=== PATIENT | female | born 1985 | race Caucasian/White ===

== ENCOUNTER 2023-10-23 12:20 | Emergency (ER) | payer BC, SELFPAY ==
[2023-10-23 12:28] VITALS: BP 139/82; PULSE 82; RESP 18; TEMP 37.2; O2SAT 97
--- NOTE | 2023-10-23 12:46 | US_ITS ---
Patient: YADI BULL Facility:?[facility] RIS Patient ID:?[id number] Site Patient ID:?[id number] Site :?1985 Study:?US-Abdomen RUQ-10/23/2023 2:36:59 PM Ordering Physician:Cindi Final Report: INDICATION: Abdominal pain. COMPARISON: None. FINDINGS: Transabdominal imaging. The visualized pancreas is normal. Aorta is non aneurysmal. IVC is patent. Mildly increased liver echotexture diffusely some focal sparing in the inferior right liver. Smooth liver margin. Somewhat contracted gallbladder. Mild wall thickening up to 4 mm. Shadowing stone at the proximal neck at least 3 cm in diameter. Positive sonographic Negrete`s sign reported. Visualized right kidney unremarkable. IMPRESSION: Acute cholecystitis with moderately prominent cholelithiasis. Fatty liver. Dictated by Jose Saleh MD @ 10/23/2023 3:09:46 PM Signed by:?Jose Saleh MD @10/23/2023 3:09:46 PM (Electronic Signature)
--- NOTE | 2023-10-23 12:52 | ED_ITS ---
HPI - General Adult General Chief complaint: Abdominal Pain Stated complaint: abd pain right side Time Seen by Provider: 10/23/23 12:31 Source: patient Mode of arrival: ambulatory Limitations: no limitations History of Present Illness HPI narrative: 38-year-old female coming in today complaining about right-sided abdominal pain going on for 3 days. Pain is dull and constant. Nothing seems to make it better or worse. Is not associated with eating, burping, bowel movements or urinating. Does not radiate and is located in the right upper quadrant. She denies nausea or vomiting. She denies fevers or chills. She denies any new physical activity. She denies any increased urinary frequency, urgency or dysuria. She denies diarrhea or constipation. She states that she has had a fallopian tube removed in the past, tear duct surgery. She takes Lexapro and Adderall. Related Data Home Medications Medication Instructions Recorded Confirmed dextroamphetamine-amphetamine ER 1 cap PO DAILY 10/23/23 10/23/23 20 mg 24hr capsule,extend release escitalopram oxalate 20 mg tablet 20 mg PO QAM 10/23/23 10/23/23 Allergies Allergy/AdvReac Type Severity Reaction Status Date / Time No Known Drug Allergies Allergy Verified 10/23/23 12:34 Review of Systems Status of ROS: Reports: 10 or more systems reviewed and unremarkable except as noted in History and below Exam Narrative: Exam Narrative: Obese, well-developed patient in no acute distress. Alert and oriented. Answers questions appropriately. Mood and affect are appropriate. Thoughts are goal oriented and rational. No tangential or magical thinking noted. Patient speaks in full sentences without needing to catch her breath. HEENT: Normocephalic atraumatic. Pupils are equally round reactive to light. Extraocular muscles are intact. Conjunctivae are moist without any icterus noted. Moist mucous membranes. Neck is soft. Cardiovascular: Heart is regular rate and rhythm S1 and S2 are present without any murmurs. Lungs: Clear to auscultation bilaterally no wheezes rhonchi or rales are appreciated. Patient takes deep breaths without any discomfort. Abdomen: Soft and nondistended with normal bowel sounds. No guarding or rebound. She does have right upper quadrant tenderness with a positive Negrete sign. She also has right CVA tenderness. There are no overlying skin rashes or changes. Extremities: Bilateral lower extremities are without edema. Skin: Well perfused without any obvious rashes. Const: Vital Signs, click to edit/add: Vital Signs - 24 hr 10/23/23 12:28 Temperature 98.9 F Pulse Rate [Pulse Oximeter] 82 Respiratory Rate 18 Blood Pressure [Ri ght Upper Arm] 139/82 Pulse Oximetry 97 Oxygen Delivery Me thod Room Air Course Course ED Course: Differential diagnosis at this time includes coli lithiasis, nephrolithiasis, musculoskeletal pain. Less likely but certainly still possible pyelonephritis, cholecystitis, constipation. IV was established and labs were drawn. Right upper quadrant ultrasound was ordered. CBC unremarkable. Lactate unremarkable. Chemistries unremarkable. Lactate 0.4. LFTs and lipase normal. CRP 1.2. UA unremarkable. Culture pending. Ultrasound shows a very large gallstone in a contracted gallbladder. Does note cholecystitis, however I do not see any evidence of infection in her lab work nor in her physical presentation. Vital Signs Vital signs: Initial Vital Signs Temperature 98.9 F 10/23/23 12:28 Temperature Source Temporal Artery Scan 10/23/23 12:28 Pulse Rate 82 10/23/23 12:28 Pulse Rhythm Regular 10/23/23 12:28 Respiratory Rate 18 10/23/23 12:28 Blood Pressure 139/82 10/23/23 12:28 Blood Pressure Mean 101 10/23/23 12:28 Blood Pressure Position Sitting 10/23/23 12:28 Pulse Oximetry 97 10/23/23 12:28 Oxygen Delivery Method Room Air 10/23/23 12:28 Vital Signs Temperature 98.9 F 10/23/23 12:28 Pulse Rate 82 10/23/23 12:28 Respiratory Rate 18 10/23/23 12:28 Blood Pressure 139/82 10/23/23 12:28 Pulse Oximetry 97 10/23/23 12:28 Oxygen Delivery Method Room Air 10/23/23 12:28 Temperature 98.9 F 10/23/23 12:28 Pulse Rate 82 10/23/23 12:28 Respiratory Rate 18 10/23/23 12:28 Blood Pressure 139/82 10/23/23 12:28 Pulse Oximetry 97 10/23/23 12:28 Oxygen Delivery Method Room Air 10/23/23 12:28 Medical Decision Making MDM Narrative Medical decision making narrative: 38-year-old female fiber quadrant pain and cholelithiasis. Patient will be sent home with pain medication and we will have her follow up in the [facility] this week. I did call and leave a message with the surgical instrument technician coordinator to reach out to her. Lab Data Lab results reviewed: Yes I reviewed the patient's lab results Labs: Lab Results 10/23/23 10/23/23 Range/Units 13:11 13:35 WBC 6.70 (4.50-11.00) K/uL RBC 4.93 (4.00-5.20) m/uL Hgb 12.8 (12.0-16.0) gm/dL Hct 40.9 (33.0-51.0) % MCV 83 (80-100) fL MCH 26 (26-34) pg MCHC 31 L (32-36) gm/dL RDW Coeff of Greta 14.5 (11.5-15.5) % Plt Count 436 (140-440) K/uL Neut % (Auto) 61.9 (42.0-72.0) % Lymph % (Auto) 29.1 (20-44) % Garvin % (Auto) 6.4 (0.0-11.0) % Eos % (Auto) 2.1 (0.0-7.0) % Baso % (Auto) 0.4 (0.0-3.0) % Neut # (Auto) 4.14 (1.7-7.0) K/uL Lymph # (Auto) 1.95 (0.90-2.90) K/uL Garvin # (Auto) 0.40 (0.00-0.90) K/UL Eos # (Auto) 0.14 (0.00-0.50) K/uL Baso # (Auto) 0.03 (0.00-0.30) K/uL Abs Immat Gran (auto) 0.01 (0.00-0.30) K/uL Imm/Tot Granulo (auto) 0.1 % Sodium 139 (135-149) mmol/L Potassium 3.8 (3.6-5.1) mmol/L Chloride 104 (96-114) mmol/L Carbon Dioxide 29 (20-32) mmol/L Anion Gap 6 L (7-15) mEq/L BUN 10 (5-24) mg/dL Creatinine 0.8 (0.5-1.5) mg/dL Estimated GFR 97 ml/min Glucose 91 (60-115) mg/dL Lactate 0.4 L (0.5-1.9) mmol/L Calcium 8.9 (8.4-10.6) mg/dL Total Bilirubin 0.4 (0.1-1.5) mg/dL Direct Bilirubin 0.0 (0.0-0.5) mg/dL AST 23 (12-35) U/L ALT 21 (4-35) U/L Alkaline Phosphatase 89 (40-150) U/L C-Reactive Protein 1.2 H (0.5-1.0) mg/dL Total Protein 7.7 (6.0-8.3) g/dL Albumin 4.3 (3.3-5.0) g/dL Lipase 40 (23-300) U/L Urine Color Yellow (Yellow) Urine Appearance Slightly Cloudy A (Clear) Urine pH 5.5 (5.0-8.5) Ur Specific [place] 1.025 (1.000-1.030) Urine Protein Negative (Negative) Urine Glucose (UA) Negative (Negative) Urine Ketones Negative (Negative) Urine Blood Negative (Negative) Urine Nitrite Negative (Negative) Urine Bilirubin Negative (Negative) Urine Urobilinogen 0.2 (0.2-1.0) Ur Leukocyte Esterase Negative (Negative) Urine RBC 0-2 (0-2) Urine WBC 2-5 (0-5) Ur Squamous Epith Cells Moderate A (None-Few) Urine Bacteria Few A (None) Urine HCG, Qual Negative (Negative) Imaging Data US - abdomen: Attestation: I have reviewed the pertinent imaging results. Radiologist's impression: Study:?US-Abdomen [facility]-10/23/2023 2:36:59 PM Ordering Physician:Cindi Final Report: INDICATION: Abdominal pain. COMPARISON: None. FINDINGS: Transabdominal imaging. The visualized pancreas is normal. Aorta is non an eurysmal. IVC is patent. Mildly increased liver echotexture diffusely some focal sparing in the inferior right liver. Smooth liver margin. Somewhat contracted gallbladder. Mild wall thickening up to 4 mm. Shadowing stone at the proximal neck at least 3 cm in diameter. Positive sonographic Negrete`s sign reported. Visualized right kidney unremarkable. IMPRESSION: Acute cholecystitis with moderately prominent cholelithiasis. Fatty liver. Discharge Plan Discharge Clinical Impression: Cholelithiasis Patient Disposition: Home, Self-Care Condition: Stable Additional Instructions: Take pain medication as needed. Someone from the surgical team will call you on Tuesday to set up a follow-up appointment. Return to the ER if you develop vomiting, worsening pain or fevers. Eight tablets of [place] sent to [facility]. Prescriptions: No Action dextroamphetamine-amphetamine 20 mg capsule,extended release 24hr 1 cap PO DAILY escitalopram oxalate 20 mg tablet 20 mg PO QAM Follow Up/Referrals: Shannon Mckinney MD [Primary Care Provider] - Stand Alone Forms: [place] Info Instructions
--- OUTSIDE RECORDS SUMMARY | 2023-10-23 12:55 | XMS_ITS | Clinical Summary ---
Author Name Unknown Organization [facility] Address [place], [place] [address] Care Team Providers Care Stone Banker Name Role Phone Dylon Sky MD Unavailable [phone] Henrik Frias DO Primary Care Provider [phone] Allergies Active Allergy Reactions Criticality Noted Date Comments [place] Rash 02/27/2014 Formaldehyde Analogues Headache 06/03/2014 Topical Nickel Rash High 12/08/2007 Unlisted Allergen (Include D etail In Comments) Rash 06/03/2014 Gold Medications Medication Sig Dispensed Refills Start Date End Date Status cyanocobalamin (VITAMIN B-12) 1,000 mcg tablet Take 1 tablet by mouth once daily. 90 tablet 3 05/29/2018 Active Fluocinolone Acetonide (DERMA-SMOOTHE/FS ECZEMA) 0.01 % oil NoIndications:Chronic eczema Apply topically to affected area(s) 2 times daily. 118.28 mL 12/18/2018 Active albuterol HFA 90 mcg/actuation inhalerIndications:Re active airway disease without complication, unspecified asthma severity, unspecified whether persistent Inhale 1-2 Puffs by mouth every 6 hours if needed. 1 Inhaler 09/26/2019 Active dextroamphetamine-amp hetamine (Adderall XR) 20 mg Extended-Release capsuleIndications:At tention deficit hyperactivity disorder (ADHD), other type Take 1 Capsule (20 mg) by mouth once daily. 30 Capsule 09/28/2022 Active dextroamphetamine-amp hetamine (ADDERALL XR) 20 mg Extended-Release capsuleIndications:At tention deficit hyperactivity disorder (ADHD), other type Take 1 Capsule (20 mg) by mouth once daily. 30 Capsule 07/27/2023 Active escitalopram oxalate (LEXAPRO) 20 mg tabletIndications:Anx iety Take 1 Tablet (20 mg) by mouth every morning 90 Tablet 08/29/2023 Active Active Problems Problem Noted Date Diagnosed Date MS (multiple sclerosis) 10/22/2020 Overview: Diagnosis 2018 Dr Gely Pina of migraines 02/14/2017 Attention deficit disorder without mention of hy peractivity 05/28/2014 Generalized anxiety disorder 05/28/2014 Abdominal pain, epigastric 07/20/2013 Overview: EGD 06/2013 normal Lumbar facet arthropathy 09/18/2012 Displacement of lumbar inter vertebral disc without myelopathy 03/22/2012 Other atopic dermatitis and related conditions 0 12/23/2011 Allergic rhinitis, cause unspecified 05/03/2011 Adjustment disorder with mixed anxiety and depre ssed mood 01/02/2008 Encounters Date Type Department Care Team Description 08/29/2023 Refill [facility] [address] [place] [address] Henrik Frias DO Refill Request (Escitalopram Oxalate) from Last 3 Months Immunizations Name Administration Dates Next Due AMB INFLUENZA, IIV4 (AGE=>6M OS) MDV (Flu Clinic Only) 04/03/2018 AMB Influenza, IIV3 (Age >=3 years)(Flu Clinic Only) 04/21/2011 COVID-19 vaccine (Moderna 100mcg/0.5mL) PF, MDV 10/09/2020 DTP 02/05/1987, 6,1985,10/03 DTaP 05/11/1991 Human Papilloma Virus Vaccine 06/25/2011, 011,12/23/2010 02/23/2011 Influenza A (H1N1), Inactivated 05/28/2009 Influenza A (H1N1), Inactiva pete (Age >=3 Years) 05/28/2009 Influenza, IIV3 (Age 6-35 mos) 04/21/2011,2008 Influenza, IIV3 (Age >=3 years) 03/20/2016,05/28,05/09/2008 Influenza, IIV4 05/12/2020,02/28/2019 Influenza, Intradermal Inactivated 05/14/2015 MMR 10/03/1997,10/29/1986 Oral Polio Vaccine 02/05/1987, 6,1985,10/03 Td (Age >=7 Years) 10/03/1997 Tdap 01/03/2017,05/09/2008 Family History Medical History Relation Name Comments Diabetes Father Heart attack Father Hypertension Father Stroke Father Transient ischemic attack Father Hypertension Mother Other Mother 3 miscarriages Cancer-colon Paternal Grandfather Relation Name Status Comments Father Alive Mother Alive Paternal Grandfather Sister 1 Alive Sister 2 Alive Social History Tobacco Use Types Packs/Day Years Used Date Smoking Tobacco: Never Smokeless Tobacco: Never Tobacco Cessation:Counseling Given: Yes Alcohol Use Standard Drinks/Week Comments Yes 0 (1 standard drink = 0.6 oz pur e alcohol) 2 drinks per month PHQ-2 Answer Date Recorded PHQ-2 TOTAL SCORE 1 07/30/2022 Social Connections Answer Date Recorded Frequency of Communication with Friends and Fami ly Not on file 06/20/2021 Financial Resource Strain Answer Date R ecorded Difficulty of Paying Living Expenses Not on file 06/20/2021 Difficulty of Paying Living Expenses Not on file 06/20/2021 Sex and Gender Information Value Date Recorded Sex Assigned at Not on file Gender Identity Not on file Sexual Orientation Not on file Obstetrics History Para Term AB IAB SAB Ectopic Multiple Livin g Live Births 2 1 0 0 0 0 0 0 0 1 Date Outcome GA Total Labor Labor/2nd/3rd Weight Sex Delivery Anes PTL Carlotta A1 A5 Name Cl in Para 10/31 39w 0d 27h 00m/ 3.91 kg (8 lb 10 oz) M Vag Kimberly ng Last Filed Vital Signs Vital Sign Reading Time Taken Comments Blood Pressure 141/84 07/30/2022 1:20 PM LATHE PULLER Pulse 96 07/30/2022 1:03 PM LATHE PULLER Temperature 36.7 ??C (98 ??F) 05/29/2018 4:07 PM LATHE PULLER Respiratory Rate 20 11/17/2010 2:08 PM CDT Oxygen Saturation 97% 07/30/2022 1:03 PM LATHE PULLER Inhaled Oxygen Concentration - - Weight 110.8 kg (244 lb 4.8 oz) 07/30/2022 1:03 PM LATHE PULLER Height 167.5 cm (5' 5.95) 07/30/2022 1:03 PM CS T Body Mass Index 39.5 07/30/2022 1:03 PM LATHE PULLER Plan of Treatment Health Maintenance Due Date Last Done Comments Hepatitis C screening for age 18-79 2003 COVID-19 vaccine series (2022-24 season) 2023 11/06/2020, 10/09/2020 Pap test for age 21-65 04/03/2023 8, 04/03/2018, 09/06/2014, Additional history exists BMI (ht and wt on same day) for age 18+ 07/30/2023 07/30/2022, 12/18/2018, 05/29/2018, Additional history exists Depression screening for age 12+ 07/30/2023 07/30/2022, 10/22/2020, 05/12/2020, Additional history exists Influenza for age 9-49 02/19/2024 0, 02/28/2019, 04/03/2018, Additional history exists Tetanus booster 01/03/2027 01/03/2017, 04/21, 10/03/1997 HIV for age 15-65 Completed 09/06/2014, 12/23/2011 Tdap Completed 01/03/2017, 05/09/2008 Pneumococcal series for age 6-64 Aged Out No longer eligible based on patient's age to complete this topic Procedures Procedure Name Priority Date/Time Associated Diagnosis Comments DEHAIRER THIN PREP PAP SCREEN IMAGED Routine 04/03/2018 12:40 PM CDT Screening for malignant neoplasm of cervix ANTI HIV 1/2 Routine 09/06/2014 4:05 PM CDT Screening for STD (sexually transmitted disease) from Last 3 Months or Most Recently Relevant to Health Maintenance Results * DEHAIRER THIN PREP PAP SCREEN IMAGED [[id number]] (04/03/2018 12:40 PM CDT) Case Report Gynecologic Cytology Report ? Case: [id number] ? Authorizing Provider: ??Shannon Mckinney MD ? Collected: ? 04/03/2018 1240 ? Ordering Location: ? [facility] ?? Received: ?04/03/2018 1318 ? Clinic ? First Screen: ?Reyna Diaz ? Specimen: ?DEHAIRER ThinPrep Vial Screening, Cervical ? 04/13/2018 3:34 PM CDT [facility] INTERPRETATION/ RESULT NEGATIVE FOR INTRAEPITHELIAL LESION OR MALIGNANCY (NIL) (none) 04/13/2018 3:34 PM CDT [facility] IMEN ADEQUACY Satisfactory for evaluation Endocervical component present 04/13/2018 3:34 PM CDT [facility] HPV REQUEST HPV and PAP 04/13/2018 3:34 PM CDT [facility] Date of LMP 03/04/18 04/13/2018 3:34 PM CDT [facility] Last Pap Date 09/06/14 04/13/2018 3:34 PM CDT [facility] Last Pap Result NIL 8 3:34 PM CDT [facility] Abnormal Pap or [place] Bx in last 5 years No 04/13/2018 3:34 PM CDT [facility] Menstrual Status Regular Periods 04/13/2018 3:34 PM CDT [facility] [place] Bx Done Today No 04/13/2018 3:34 PM CDT [facility] Additional Information None given 04/13/2018 3:34 PM CDT [facility] Automated Review Successful 04/13/2018 3:34 PM CDT [facility] Comment:Specimen processed s uccessfully by automated front office medical assistant device, PlinkPrep Imaging System, [employer] ANCILLARY TESTING DEHAIRER HPV Ordered, Please see separate report 04/13/2018 3:34 PM CDT [facility] Note The pap test is a screening technique, not a diagnostic procedure. ??It is used primarily to screen for squamous cancers and precursor lesions. ??Published studies have shown that it is subject to both false negative and false positive results. ??The pap test should not be used as the sole means to diagnose or exclude pre-malignant and malignant lesions. Cytology is screened and interpreted at [facility], [facility] - [address], [place] [address] and [facility] - [address] [place] [address]; [place] [address] and [facility] - [address]; [place] [address] and [facility] [address]; [place] [address] 04/13/2018 3:34 PM CDT [facility] Other (Cervical) Non-Blood / Unknown 04/03/2018 12:40 PM CDT 04/03/2018 1:18 PM CDT Shannon Mckinney MD PATHOLOGY/CYTOLOGY [facility] [address] [place] [address], * ANTI HIV 1/2 (09/06/2014 4:05 PM CDT) HIV-1/HIV-2 ANTIBODY Non-Reacti ve Non-Reacti ve 09/06/2014 8:02 PM CDT [facility] Blood specimen (specimen) BLOOD SPECIMEN / Unknown Venipuncture / Unknown 09/06/2014 4:05 PM CDT 09/06/2014 4:05 PM CDT Narrative [facility] - 09/06/2014 8:02 PM CDT HIV-1 p24 and HIV-1/HIV-2 Ab not detected Homa Georges MD [facility] [address] [place] [address], from Last 3 Months or Most Recently Relevant to Health Maintenance Care Teams Stone Banker Relationship Specialty Start Date End Date Henrik Frias DO [address] [place] [address] PCP - General Family Practice 12/30/22 Dylon Sky MD [address] [facility] [address] [place] [address] Otolaryngology Surgery - Otolaryngology 12/14/10
[2023-10-23 13:18] LABS: Basophils Absolute Auto 0.03 K/uL (0.00-0.30); Basophils Percent Auto 0.4 % (0.0-3.0); Eosinophils Absolute Auto 0.14 K/uL (0.00-0.50); Eosinophils Percent Auto 2.1 % (0.0-7.0); Hematocrit 40.9 % (33.0-51.0); Hemoglobin* 12.8 gm/dL (12.0-16.0); Immature Granulocytes Abs Auto 0.01 K/uL (0.00-0.30); Immature Granulocytes Pct Auto 0.1 %; Lymphocytes Absolute Auto 1.95 K/uL (0.90-2.90); Lymphocytes Percent Auto 29.1 % (20-44); Mean Corpuscular HGB Conc 31 gm/dL (32-36); Mean Corpuscular Hemoglobin 26 pg (26-34); Mean Corpuscular Volume 83 fL (80-100); Monocytes Percent Auto 6.4 % (0.0-11.0); Neutrophils Absolute Auto 4.14 K/uL (1.7-7.0); Neutrophils Percent Auto 61.9 % (42.0-72.0); Platelet Count* 436 K/uL (140-440); RDW Coefficient of Variation % 14.5 % (11.5-15.5); Red Blood Count 4.93 m/uL (4.00-5.20)
[2023-10-23 13:24] LABS: Lactate* 0.4 mmol/L (0.5-1.9); Slide Review Reflex No
[2023-10-23 13:48] LABS: Albumin* 4.3 g/dL (3.3-5.0); Chloride* 104 mmol/L (96-114)
[2023-10-23 13:48] LABS: Appearance Urine Slightly Cloudy (Clear); Bilirubin Urine Negative (Negative); Blood Urine Negative (Negative); Color Urine Yellow (Yellow); Glucose Urine Negative (Negative); Ketones Urine Negative (Negative); Leukocyte Esterase Urine Negative (Negative); Nitrite Urine Negative (Negative); Protein Urine Negative (Negative); Specific Gravity Urine 1.025 (1.000-1.030); Urobilinogen Urine 0.2 (0.2-1.0); pH Urine 5.5 (5.0-8.5)
[2023-10-23 13:49] LABS: Potassium* 3.8 mmol/L (3.6-5.1); Sodium* 139 mmol/L (135-149)
[2023-10-23 13:51] LABS: Creatinine* 0.8 mg/dL (0.5-1.5); Estimated Glomerular Filt Rate 97 ml/min
[2023-10-23 13:52] LABS: Alanine Aminotransferase* 21 U/L (4-35); Alkaline Phosphatase* 89 U/L (40-150); Anion Gap 6 mEq/L (7-15); Aspartate Amino Transferase* 23 U/L (12-35); Bilirubin Total* 0.4 mg/dL (0.1-1.5); Blood Urea Nitrogen* 10 mg/dL (5-24); Calcium* 8.9 mg/dL (8.4-10.6); Carbon Dioxide* 29 mmol/L (20-32); Glucose* 91 mg/dL (60-115); Lipase* 40 U/L (23-300); Total Protein* 7.7 g/dL (6.0-8.3)
[2023-10-23 13:54] LABS: C Reactive Protein* 1.2 mg/dL (0.5-1.0)
[2023-10-23 14:27] LABS: Ur HCG Qualitative* Negative (Negative)
[2023-10-23 14:41] LABS: Bacteria Urine Few; RBC Urine 0-2 (0-2); Squamous Epithelial Cell Urine Moderate (None-Few)
== END 2023-10-23 15:32 | disposition home or self-care (01) ==
PROVIDERS: Emergency Provider Family Medicine; PCP Family Medicine
DX: K80.00 Calculus of gallbladder with acute cholecystitis without obstruction (principal)
CPT/HCPCS: 36415; 76705; 80048; 80076; 81001; 81025; 83605; 83690; 85025; 86140; 87086; 99284

== ENCOUNTER 2023-10-24 22:22 | Day surgery (SDC) | payer BC, SELFPAY ==
--- OUTSIDE RECORDS SUMMARY | 2023-10-24 22:26 | XMS_ITS | Clinical Summary ---
Author Name Unknown Organization [employer] [facility] Address [place], [place] [address] Care Team Providers Care Wedding Planning Internship Name Role Phone Dylon Sky MD Unavailable [phone] Henrik Frias DO Primary Care Provider Allergies Active Allergy Reactions Criticality Noted Date Comments [place] Rash 02/27/2014 Formaldehyde Analogues Headache 06/03/2014 Topical [...] (multiple sclerosis) 10/22/2020 Overview: Diagnosis 2018 Dr Hong Hx of migraines 02/14/2017 Attention deficit disorder without [...] Encounters Date Type Department Care Team Description 10/24/2023 12:30 PM CDT Office Visit [facility] [address] [place] [address] Crystal Leyva MD Consult (gallbladder) 10/24/2023 Travel 10/24/2023 Telephone [facility] [address] [place] [address] Crystal Leyva MD Appointment (Dr. Leyva wants to see pt today at 12:30) 08/29/2023 Refill [facility] [address] [place] [address] Henrik Frias DO Refill Request (Escitalopram Oxalate) [...] Sign Reading Time Taken Comments Blood Pressure 139/82 10/24/2023 12:30 PM CDT Pulse 86 10/24/2023 12:30 PM CDT Temperature 37.1 ??C (98.7 ??F) 10/24/2023 1 2:30 PM CDT Respiratory Rate 20 11/17/2010 2:08 PM CDT Oxygen Saturation 99% 10/24/2023 12: 30 PM CDT Inhaled Oxygen Concentration - - Weight 118.2 kg (260 lb 8 oz) 12:30 PM CDT with shoes Height 167.5 cm (5' 5.95) 07/30/2022 1:03 PM CS T Body Mass Index 42.12 07/30/2022 1:03 PM UTILITY WORKER DRIVER Plan of Treatment Upcoming Encounters Date Type Department Care Team (Late st Contact Info) Description 11/01/2023 2:00 PM CDT Ancillary Procedure [facility] [address] [place] [address] 11/01/2023 4:00 PM CDT Ancillary Procedure [facility] [address] [place] [address] Health Maintenance Due Date Last Done Comments Hepatitis C screening for age 18-79 2003 COVID-19 vaccine series ( season) 2023 11/06/2020, 10/09/2020 Pap test for age 21-65 04/03/2023 8, 04/03/2018, 09/06/2014, Additional history exists BMI (ht and wt on same day) for age 18+ 07/30/2023 07/30/2022, 12/18/2018, 05/29/2018, Additional history exists Depression screening for age 12+ 07/30/2023 07/30/2022, 10/22/2020, 05/12/2020, Additional history exists Influenza for age 9-49 02/19/2024 0, 02/28/2019, 04/03/2018, Additional history exists Tetanus booster 01/03/2027 01/03/2017, 11, 10/03/1997 HIV for age 15-65 Completed 09/06/2014, 12/23/2011 Tdap Completed 01/03/2017, 05/09/2008 Pneumococcal series for age 6-64 Aged Out No longer eligible based on patient's age to complete this topic Procedures Procedure Name Priority Date/Time Associated Diagnosis Comments CARD WRITER HAND THIN PREP PAP SCREEN IMAGED Routine 04/03/2018 12:40 PM CDT Screening for malignant neoplasm of cervix ANTI HIV 1/2 Routine 09/06/2014 4:05 PM CDT Screening for STD (sexually transmitted disease) from Last 3 Months or Most Recently Relevant to Health Maintenance Results * CARD WRITER HAND THIN PREP PAP SCREEN IMAGED [[id number]] (04/03/2018 12:40 PM CDT) Case Report Gynecologic Cytology Report ? Case: [id number] ? Authorizing Provider: ??Shannon Mckinney MD ? Collected: ? 04/03/2018 1240 ? Ordering Location: ? [facility] ?? Received: ?04/03/2018 1318 ? Clinic ? First Screen: ?Reyna Diaz ? Specimen: ?CARD WRITER HAND ThinPrep Vial Screening, Cervical ? 04/13/2018 3:34 PM CDT [facility] INTERPRETATION/ RESULT NEGATIVE FOR INTRAEPITHELIAL LESION OR MALIGNANCY (NIL) (none) 04/13/2018 3:34 PM CDT [facility] IMEN ADEQUACY Satisfactory for evaluation Endocervical component present 04/13/2018 3:34 PM CDT [facility] HPV REQUEST HPV and PAP 04/13/2018 3:34 PM CDT [facility] Date of LMP 03/04/18 04/13/2018 3:34 PM CDT [facility] Last Pap Date 09/06/14 04/13/2018 3:34 PM CDT [facility] Last Pap Result NIL 8 3:34 PM CDT [facility] Abnormal Pap or [place] Bx in last 5 years No 04/13/2018 3:34 PM CDT [facility] Menstrual Status Regular Periods 04/13/2018 3:34 PM CDT [facility] [place] Bx Done Today No 04/13/2018 3:34 PM CDT [facility] Additional Information None given 04/13/2018 3:34 PM CDT [facility] Automated Review Successful 04/13/2018 3:34 PM CDT [facility] Comment:Specimen processed s uccessfully by automated propeller inspector device, ThinPrep Imaging System, [employer] ANCILLARY TESTING CARD WRITER HAND HPV Ordered, Please see separate report 04/13/2018 3:34 PM CDT [facility] Note The pap test is a [...] lesions. Cytology is screened and interpreted at [facility] - [address], [place] [address] and [facility] - [address]; [place] [address] and [facility] - [address]; [place] [address] and [facility] [address]; [place] [address] 04/13/2018 3:34 PM CDT [facility] Other (Cervical) Non-Blood / Unknown 04/03/2018 12:40 PM CDT 04/03/2018 1:18 PM CDT Shannon Mckinney MD PATHOLOGY/CYTOLOGY [facility] [address] [place] [address], * ANTI HIV 1/2 (09/06/2014 4:05 PM CDT) HIV-1/HIV-2 ANTIBODY Non-Reacti ve Non-Reacti ve 09/06/2014 8:02 PM CDT [facility] Blood specimen (specimen) BLOOD SPECIMEN / Unknown Venipuncture / Unknown 09/06/2014 4:05 PM CDT 09/06/2014 4:05 PM CDT Narrative [facility] - 09/06/2014 8:02 PM CDT HIV-1 p24 and HIV-1/HIV-2 Ab not detected Homa Georges MD SEND OUTS [facility] [address] [place] [address], from Last 3 Months or Most Recently Relevant to Health Maintenance Care Teams Wedding Planning Internship Relationship Specialty Start Date End Date Henrik Frias DO [address] [place] [address] PCP - General Family Practice 12/30/22 Dylon Sky MD [address] [facility] [address] [place] [address] Otolaryngology Surgery - Otolaryngology 12/14/10
[2023-10-24 22:31] VITALS: BP 154/101; PULSE 104; RESP 18; TEMP 37.1; O2SAT 98; BMI 40.7
--- NOTE | 2023-10-24 22:32 | ED.GENADULT ---
HPI - General Adult General Time Seen by Provider: 22:24 Date Seen: 10/24/23 Chief complaint: Flank Pain Stated complaint: flank pain Time Seen by Provider: 10/24/23 22:24 Source: patient, RN notes reviewed and old records reviewed Mode of arrival: ambulatory Limitations: no limitations History of Present Illness HPI narrative: This 38-year-old female is coming in with worsening right upper quadrant abdominal pain. She has had no fevers. She has tried Tylenol ibuprofen, did take 1 Vicodin. She maybe feels a little bit more constipated now, does not note any diarrhea or change in stool color. She has had some nausea, no vomiting. She feels the right upper quadrant pain going into the right back. She has been tolerating foods and liquids in small amounts, trying to avoid fatty foods. She was in the ER yesterday, had an ultrasound showing contracted gallbladder with a stone. The ultrasound findings were worrisome for cholecystitis but her clinical presentation and labs did not support this. Her labs were normal yesterday. She was given pain management and told to follow-up with surgery. She was seen in surgery clinic today. The concern was that her symptoms may not be pest control service representative of classic cholelithiasis. She was requested to proceed with having a CT of her abdomen to further evaluate the liver lesion and other causes for right upper quadrant pain. HIDA scan was also ordered to further delineate underlying gallbladder disease. There was concerns that this could be musculoskeletal in nature. In patient's records, there is a history of abdominal pain in the epigastric area within normal EGD back in 2013. She has had a history of bilateral tubal ligation in February of 2017, negative urine test confirmed yesterday. She has also had an endometrial ablation in February of 2017. Related Data Home Medications Medication Instructions Recorded Confirmed dextroamphetamine-amphetamine ER 1 cap PO DAILY 10/23/23 10/23/23 20 mg 24hr capsule,extend release escitalopram oxalate 20 mg tablet 20 mg PO QAM 10/23/23 10/23/23 Allergies Allergy/AdvReac Type Severity Reaction Status Date / Time No Known Drug Allergies Allergy Verified 10/23/23 12:34 Review of Systems Status of ROS: Reports: 6 or more systems reviewed and unremarkable except as noted in History and below [facility] Medical History (Updated 10/25/23 @ 00:17 by Mehreen Kim MD) Multiple sclerosis ?G35 - Multiple sclerosis (ICD-10) Migraine ?G43.909 - Migraine, unspecified, not intractable, without status migrainosus (ICD-10) Depression with suicidal ideation ?F32.A - Depression, unspecified (ICD-10) ?R45.851 - Suicidal ideations (ICD-10) Chronic low back pain ?M54.50 - Low back pain, unspecified (ICD-10) ?G89.29 - Other chronic pain (ICD-10) ADD (attention deficit disorder) ?F98.8 - Other specified behavioral and emotional disorders with onset usually occurring in childhood and adolescence (ICD-10) Social History Smoking Status: Never smoker Do you use any of these nicotine containing products: None Non-prescribed substance use: denies use Exam Const: Vital Signs, click to edit/add: Vital Signs - 24 hr 10/24/23 22:31 10/24/23 22:33 10/24/23 22:48 Temperature 98.7 F 98.7 F Pulse Rate [Pulse Oximeter] 104 H Respiratory Rate 18 Blood Pressure [Ri ght Upper Arm] 154/101 H Pulse Oximetry 98 99 Oxygen Delivery Me thod Room Air This is a tearful 38-year-old female otherwise alert, interactive, very pleasant. Sclera slightly injected from crying but no periorbital swelling or erythema, no purulent discharge. There is no jaundice or scleral icterus noted. Able speak in complete sentences. Lungs are clear, good air entry, no wheezing or crackles. CV regular rate and rhythm no murmur. Abdomen is mildly obese, soft, patient has right upper quadrant tenderness to the point that she will not allow me to touch her right abdomen. Left upper quadrant and lower abdomen with out any tenderness or masses. I did not press the patient given her level of discomfort current and recent evaluations. Documenting provider has reviewed patient's vital signs: yes Course Course ED Course: Will place an IV, recheck appropriate labs. I have ordered the CT of her abdomen pelvis to be done tonight, IV contrast with this. Will start with some IV fluids, Zofran and Toradol. Can move to narcotic pain management if need be. Reevaluation(s) Time of Reevaluation #1: 23:37 Reevaluation #1: Patient reports she is feeling better with the IV fluids, IV Toradol and Zofran. Reviewed that her labs are stable, no elevation white count, no changes in the her functions are lipase. Her CT scan has not been read, awaiting radiology over read. She does not feel she needs anything further for pain at this time. Consultations Consultation #1: Reviewed with Dr. Khan. She agrees with hospitalization, wanted overnight hospitalist to admit. Spoke with him from [facility] 00:10, he accepts. Did start IV Zosyn. Did review all this with the patient, she is in agreement with the plan. Time: 00:06 Vital Signs Vital signs: Initial Vital Signs Temperature 98.7 F 10/24/23 22:31 Temperature Source Temporal Artery Scan 10/24/23 22:31 Pulse Rate 104 H 10/24/23 22:31 Respiratory Rate 18 10/24/23 22:31 Blood Pressure 154/101 H 10/24/23 22:31 Blood Pressure Mean 118 H 10/24/23 22:31 Blood Pressure Position Sitting 10/24/23 22:31 Pulse Oximetry 98 10/24/23 22:31 Oxygen Delivery Method Room Air 10/24/23 22:31 Vital Signs Temperature 98.7 F 10/24/23 22:31 Pulse Rate 104 H 10/24/23 22:31 Respiratory Rate 18 10/24/23 22:31 Blood Pressure 154/101 H 10/24/23 22:31 Pulse Oximetry 98 10/24/23 22:31 Oxygen Delivery Method Room Air 10/24/23 22:31 Temperature 98.7 F 10/24/23 22:48 Pulse Rate 104 H 10/24/23 22:31 Respiratory Rate 18 10/24/23 22:31 Blood Pressure 154/101 H 10/24/23 22:31 Pulse Oximetry 99 10/24/23 22:33 Oxygen Delivery Method Room Air 10/24/23 22:31 Medications Administered Medications: Generic Name Dose Route Start Last Admin Trade Name Freq PRN Reason Stop Dose Admin Sodium Chloride 1,000 mls @ 500 mls/hr 10/24/23 22:38 10/24/23 22:48 0.9 % Sodium Chloride 1000 Ml IV 10/25/23 00:37 500 mls/hr .Q2H BRUNO Administration Discontinued Medications Generic Name Dose Route Start Last Admin Trade Name Freq PRN Reason Stop Dose Admin Ketorolac Tromethamine 15 mg 10/24/23 22:38 10/24/23 22:48 Ketorolac 15 Mg/Ml Inj IVP 10/24/23 22:39 15 mg ONCE ONE Administration Ondansetron HCl 4 mg 10/24/23 22:38 10/24/23 22:48 Ondansetron 2 Mg/Ml Inj IVP 10/24/23 22:39 4 mg ONCE ONE Administration Medical Decision Making Lab Data Lab results reviewed: Yes I reviewed the patient's lab results Labs: Lab Results 10/24/23 Range/Units 22:43 WBC 8.81 (4.50-11.00) K/uL RBC 4.79 (4.00-5.20) m/uL Hgb 12.8 (12.0-16.0) gm/dL Hct 39.6 (33.0-51.0) % MCV 83 (80-100) fL MCH 27 (26-34) pg MCHC 32 (32-36) gm/dL RDW Coeff of Greta 14.7 (11.5-15.5) % Plt Count 501 H (140-440) K/uL Neut % (Auto) 57.7 (42.0-72.0) % Lymph % (Auto) 32.9 (20-44) % [place] % (Auto) 7.0 (0.0-11.0) % Eos % (Auto) 1.1 (0.0-7.0) % Baso % (Auto) 0.5 (0.0-3.0) % Neut # (Auto) 5.08 (1.7-7.0) K/uL Lymph # (Auto) 2.90 (0.90-2.90) K/uL [place] # (Auto) 0.60 (0.00-0.90) K/UL Eos # (Auto) 0.10 (0.00-0.50) K/uL Baso # (Auto) 0.04 (0.00-0.30) K/uL Abs Immat Gran (auto) 0.07 (0.00-0.30) K/uL Imm/Tot Granulo (auto) 0.8 % Sodium 139 (135-149) mmol/L Potassium 3.7 (3.6-5.1) mmol/L Chloride 105 (96-114) mmol/L Carbon Dioxide 28 (20-32) mmol/L Anion Gap 6 L (7-15) mEq/L BUN 10 (5-24) mg/dL Creatinine 0.8 (0.5-1.5) mg/dL Estimated Creat Clear 92.72 Estimated GFR 97 ml/min Glucose 93 (60-115) mg/dL Lactate 1.0 (0.5-1.9) mmol/L Calcium 8.9 (8.4-10.6) mg/dL Total Bilirubin 0.3 (0.1-1.5) mg/dL Direct Bilirubin 0.1 (0.0-0.5) mg/dL AST 24 (12-35) U/L ALT 20 (4-35) U/L Alkaline Phosphatase 88 (40-150) U/L C-Reactive Protein 1.3 H (0.5-1.0) mg/dL Total Protein 8.0 (6.0-8.3) g/dL Albumin 4.4 (3.3-5.0) g/dL Lipase 62 (23-300) U/L Imaging Data CT scan - abdomen: Attestation: I have reviewed the pertinent imaging results. Radiologist's impression: Patient: YADI BULL Facility:?[facility] Patient ID:?[id number] Site Patient ID:?[id number]. Site :?1985 Study:?CT-Abdomen/Pelvis W/IV ONLY-10/24/2023 11:13:14 PM Ordering Physician:CARRIE Final Report: INDICATION: Worsening right upper quadrant pain. TECHNIQUE: CT abdomen and pelvis acquired with 128 mL Isovue 370 contrast. COMPARISON: Right upper quadrant ultrasound dated 10/23/2023. FINDINGS: Lower chest: No focal consolidation. Liver: Ill-defined 1.6 cm hypodense lesion in segment 6 of the liver (series 2, image 51). Gallbladder and bile ducts: Cholelithiasis. There is minimal pericholecystic inflammation. The gallbladder itself is not distended. Pancreas: Unremarkable. Spleen: Unremarkable. Adrenal glands: Unremarkable. Kidneys: Kidneys enhance symmetrically, without hydronephrosis. Too small to characterize hypodense left renal lesion noted in the upper pole. Retroperitoneum: No lymphadenopathy. Bowel and mesentery: Bowel is not obstructed. No significant ascites, no pneumoperitoneum. Normal appendix. Bladder: Unremarkable for degree of distention. Reproductive organs: Unremarkable. Pelvic lymph nodes: No lymphadenopathy. Vessels: Unremarkable. Abdominal wall: No acute abdominal wall abnormality. Bones: Multilevel degenerative changes of the spine. No suspicious/aggressive focal osseous lesion. IMPRESSION: 1. Cholelithiasis. Minimal pericholecystic inflammation, compatible with mild cholecystitis. Gallbladder itself is not significantly distended. 2. Ill-defined 1.6 cm hypodense lesion in segment 6 of the liver. This was echogenic on the prior ultrasound, and may reflect a hemangioma. This can be definitively evaluated with liver MRI on a nonemergent basis. Please note that all CT scans at this facility use dose modulation, iterative reconstruction, and/or weight-based dosing when appropriate to reduce radiation dose to as low as reasonably achievable. Dictated by Diaz Segura MD @ 10/25/2023 12:00:57 AM (Electronic Signature) Critical Care Time Critical Care Time Critical Care Time: No Discharge Plan Discharge Clinical Impression: Cholecystitis Cholelithiasis Qualifiers: Cholelithiasis location: gallbladder Cholecystitis presence: without cholecystitis Biliary obstruction: without biliary obstruction Qualified Code(s): K80.20 - Calculus of gallbladder without cholecystitis without obstruction Patient Disposition: Admitted As Observation
[2023-10-24 22:33] VITALS: O2SAT 99
--- NOTE | 2023-10-24 22:39 | CT_ITS ---
Patient: YADI BULL Facility:?[facility] Patient ID:?[id number] Site Patient ID:?[id number]. Site :?1985 Study:?CT-Abdomen/Pelvis W/IV ONLY-10/24/2023 11:13:14 PM Ordering Physician:CARRIE Final Report: INDICATION: Worsening right upper quadrant pain. TECHNIQUE: CT abdomen and pelvis acquired with 128 mL Isovue 370 contrast. COMPARISON: Right upper quadrant ultrasound dated 10/23/2023. FINDINGS: Lower chest: No focal consolidation. Liver: Ill-defined 1.6 cm hypodense lesion in segment 6 of the liver (series 2, image 51). Gallbladder and bile ducts: Cholelithiasis. There is minimal pericholecystic inflammation. The gallbladder itself is not distended. Pancreas: Unremarkable. Spleen: Unremarkable. Adrenal glands: Unremarkable. Kidneys: Kidneys enhance symmetrically, without hydronephrosis. Too small to characterize hypodense left renal lesion noted in the upper pole. Retroperitoneum: No lymphadenopathy. Bowel and mesentery: Bowel is not obstructed. No significant ascites, no pneumoperitoneum. Normal appendix. Bladder: Unremarkable for degree of distention. Reproductive organs: Unremarkable. Pelvic lymph nodes: No lymphadenopathy. Vessels: Unremarkable. Abdominal wall: No acute abdominal wall abnormality. Bones: Multilevel degenerative changes of the spine. No suspicious/aggressive focal osseous lesion. IMPRESSION: 1. Cholelithiasis. Minimal pericholecystic inflammation, compatible with mild cholecystitis. Gallbladder itself is not significantly distended. 2. Ill-defined 1.6 cm hypodense lesion in segment 6 of the liver. This was echogenic on the prior ultrasound, and may reflect a hemangioma. This can be definitively evaluated with liver MRI on a nonemergent basis. Please note that all CT scans at this facility use dose modulation, iterative reconstruction, and/or weight-based dosing when appropriate to reduce radiation dose to as low as reasonably achievable. Dictated by Diaz Segura MD @ 10/25/2023 12:00:57 AM Signed by:?Diaz Segura MD @10/25/2023 12:00:57 AM (Electronic Signature)
[2023-10-24 22:48] VITALS: TEMP 37.1
[2023-10-24] MEDS: KETOROLAC 15 MG/ML inj IVP (22:48)
[2023-10-24] MEDS: 0.9 % SODIUM CHLORIDE 1000 ml 1,000 ML 500 ML IV (22:48)
[2023-10-24] MEDS: ONDANSETRON 2 MG/ML inj 4 MG IVP (22:48)
--- OUTSIDE RECORDS SUMMARY | 2023-10-24 22:55 | XMS_ITS | Clinical Summary ---
Author Name Unknown Organization [employer] [facility] Address [place], [place] [address] Care Team Providers Care Assistant Hall Director Name Role Phone Dylon Sky MD Unavailable [phone] Henrik Frias DO Primary Care Provider [phone] Allergies Active Allergy Reactions Criticality Noted Date Comments Anita Rash 02/27/2014 Formaldehyde Analogues Headache 06/03/2014 Topical [...] Description 10/24/2023 12:30 PM CDT Office Visit [facility] [address] [place] [address] Crystal Leyva MD Consult (gallbladder) 10/24/2023 Travel 10/24/2023 Telephone [facility] [address] [place] [address] Crystal Leyva MD Appointment (Dr. 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 Plan of Treatment Upcoming Encounters Date Type Department Care Team (Late st Contact Info) Description 11/01/2023 2:00 PM CDT Ancillary Procedure [facility] [address] [place] [address] 11/01/2023 4:00 PM CDT Ancillary Procedure [facility] [address] [place] [address] Health Maintenance Due Date Last Done Comments [...] Procedure Name Priority Date/Time Associated Diagnosis Comments CARDIOTHORACIC ICU RN THIN PREP PAP SCREEN IMAGED Routine 04/03/2018 12:40 PM CDT Screening for malignant neoplasm of cervix ANTI HIV 1/2 Routine 09/06/2014 4:05 PM CDT Screening for STD (sexually transmitted disease) from Last 3 Months or Most Recently Relevant to Health Maintenance Results * CARDIOTHORACIC ICU RN THIN PREP PAP SCREEN IMAGED [[id number]] (04/03/2018 12:40 PM CDT) Case Report Gynecologic Cytology Report ? Case: [id number] ? Authorizing Provider: ??Shannon Mckinney MD ? Collected: ? 04/03/2018 1240 ? Ordering Location: ? [facility] ?? Received: ?04/03/2018 1318 ? Clinic ? First Screen: ?Reyna Diaz ? Specimen: ?CARDIOTHORACIC ICU RN ThinPrep Vial Screening, Cervical ? 04/13/2018 3:34 PM CDT [facility] INTERPRETATION/ RESULT NEGATIVE FOR INTRAEPITHELIAL LESION OR MALIGNANCY (NIL) (none) 04/13/2018 3:34 PM CDT [facility] IMEN ADEQUACY Satisfactory for evaluation Endocervical component present 04/13/2018 3:34 PM CDT [facility] HPV REQUEST HPV and PAP 04/13/2018 3:34 PM CDT [facility] Date of LMP 03/04/18 04/13/2018 3:34 PM CDT [facility] Last Pap Date 09/06/14 04/13/2018 3:34 PM CDT [facility] Last Pap Result NIL 8 3:34 PM CDT [facility] Abnormal Pap or [place] Bx in last 5 years No 04/13/2018 3:34 PM CDT [facility] Menstrual Status Regular Periods 04/13/2018 3:34 PM CDT [facility] [place] Bx Done Today No 04/13/2018 3:34 PM CDT [facility] Additional Information None given 04/13/2018 3:34 PM CDT [facility] Automated Review Successful 04/13/2018 3:34 PM CDT [facility] Comment:Specimen processed s uccessfully by automated pathological technician device, ThinPrep Imaging System, [employer] ANCILLARY TESTING CARDIOTHORACIC ICU RN HPV Ordered, Please see separate report 04/13/2018 3:34 PM CDT [facility] Note The pap test is [...] lesions. Cytology is screened and interpreted at [facility] - [address], [place] [address] and [facility] - [address]; [place] [address] [address] [facility] - [address]; [place] [address] and [facility] [address]; [place] [address] 04/13/2018 3:34 PM CDT [facility] Other (Cervical) Non-Blood / Unknown 04/03/2018 12:40 PM CDT 04/03/2018 1:18 PM CDT Shannon Mckinney MD PATHOLOGY/CYTOLOGY [facility] [address] [place] [address], * ANTI HIV 1/2 (09/06/2014 4:05 PM CDT) HIV-1/HIV-2 ANTIBODY Non-Reacti ve Non-Reacti ve 09/06/2014 8:02 PM CDT [facility] Blood specimen (specimen) BLOOD SPECIMEN / Unknown Venipuncture / Unknown 09/06/2014 4:05 PM CDT 09/06/2014 4:05 PM CDT Narrative [facility] - 09/06/2014 8:02 PM CDT HIV-1 p24 and HIV-1/HIV-2 Ab not detected Homa Georges MD SEND OUTS [facility] [address] [place] [address], from Last 3 Months or Most Recently Relevant to Health Maintenance Care Teams Assistant Hall Director Relationship Specialty Start Date End Date Henrik Frias DO [address] [place] [address] PCP - General Family Practice 12/30/22 Dylon Sky MD [address] [facility] [address] [place] [address] Otolaryngology Surgery - Otolaryngology 12/14/10
[2023-10-24 22:56] LABS: Basophils Absolute Auto 0.04 K/uL (0.00-0.30); Basophils Percent Auto 0.5 % (0.0-3.0); Eosinophils Percent Auto 1.1 % (0.0-7.0); Hematocrit 39.6 % (33.0-51.0); Hemoglobin* 12.8 gm/dL (12.0-16.0); Immature Granulocytes Abs Auto 0.07 K/uL (0.00-0.30); Immature Granulocytes Pct Auto 0.8 %; Lymphocytes Percent Auto 32.9 % (20-44); Mean Corpuscular HGB Conc 32 gm/dL (32-36); Mean Corpuscular Hemoglobin 27 pg (26-34); Mean Corpuscular Volume 83 fL (80-100); Neutrophils Absolute Auto 5.08 K/uL (1.7-7.0); Neutrophils Percent Auto 57.7 % (42.0-72.0); Platelet Count* 501 K/uL (140-440); RDW Coefficient of Variation % 14.7 % (11.5-15.5); Red Blood Count 4.79 m/uL (4.00-5.20); White Blood Count* 8.81 K/uL (4.50-11.00)
[2023-10-24 22:58] LABS: Slide Review Reflex No
[2023-10-24 23:09] LABS: Albumin* 4.4 g/dL (3.3-5.0); Chloride* 105 mmol/L (96-114); Potassium* 3.7 mmol/L (3.6-5.1); Sodium* 139 mmol/L (135-149)
[2023-10-24 23:11] LABS: Creatinine* 0.8 mg/dL (0.5-1.5); Est. Creatinine Clearance* 92.72; Estimated Glomerular Filt Rate 97 ml/min
[2023-10-24 23:12] LABS: Alanine Aminotransferase* 20 U/L (4-35); Alkaline Phosphatase* 88 U/L (40-150); Anion Gap 6 mEq/L (7-15); Aspartate Amino Transferase* 24 U/L (12-35); Bilirubin Direct* 0.1 mg/dL (0.0-0.5); Bilirubin Total* 0.3 mg/dL (0.1-1.5); Blood Urea Nitrogen* 10 mg/dL (5-24); Carbon Dioxide* 28 mmol/L (20-32); Glucose* 93 mg/dL (60-115)
[2023-10-24 23:13] LABS: Calcium* 8.9 mg/dL (8.4-10.6); Lipase* 62 U/L (23-300)
[2023-10-24 23:15] LABS: C Reactive Protein* 1.3 mg/dL (0.5-1.0)
[2023-10-25] VITALS (16 sets, daily range): BP systolic 127–184; BP diastolic 71–119; PULSE 65–109; RESP 14–17; TEMP 36.6–37.4; O2SAT 92–100; BMI 40.9
[2023-10-25] MEDS: PIPERACILLIN/TAZOBACTAM 3.375 GM in 0.9 % SODIUM CHLORIDE Mini-bag 100 ML IVPB (00:21)
--- OUTSIDE RECORDS SUMMARY | 2023-10-25 00:33 | XMS_ITS | Clinical Summary ---
Author Name Unknown Organization [employer] [facility] [employer] [facility] Address [place], [place] [address] Care Team Providers Care Caregivers Non Medical Name Role Phone Dylon Sky MD Unavailable Henrik Frias DO Primary Care Provider [phone] Allergies Active Allergy Reactions Criticality Noted Date Comments [place] Rash 02/27/2014 Formaldehyde Analogues Headache 06/03/2014 Topical [...] Description 10/24/2023 12:30 PM CDT Office Visit [facility] [address] [place] [address] Crystal Leyva MD Consult (gallbladder) 10/24/2023 Travel 10/24/2023 Telephone [facility] [address] [place] [address] Crystal Leyva MD Appointment (Dr. 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 Treatment Upcoming Encounters Date Type Department Care Team (Late st Contact Info) Description 11/01/2023 2:00 PM CDT Ancillary Procedure [facility] [address] [place] [address] 11/01/2023 4:00 PM CDT Ancillary Procedure [facility] [address] [place] [address] Health Maintenance Due Date Last Done Comments [...] Procedure Name Priority Date/Time Associated Diagnosis Comments SERVICER [employer]IN MACHINES THIN PREP PAP SCREEN IMAGED Routine 04/03/2018 12:40 PM CDT Screening for malignant neoplasm of cervix ANTI HIV 1/2 Routine 09/06/2014 4:05 PM CDT Screening for STD (sexually transmitted disease) from Last 3 Months or Most Recently Relevant to Health Maintenance Results * SERVICER COIN MACHINES THIN PREP PAP SCREEN IMAGED [[id number]] (04/03/2018 12:40 PM CDT) Case Report Gynecologic Cytology Report ? Case: [id number] ? Authorizing Provider: ??Shannon Mckinney MD ? Collected: ? 04/03/2018 1240 ? Ordering Location: ? [facility] ?? Received: ?04/03/2018 1318 ? Clinic ? First Screen: ?Reyna Diaz ? Specimen: ?[employer] MACH[employer]ES ThinPrep Vial Screening, Cervical ? 04/13/2018 3:34 PM CDT [facility] INTERPRETATION/ RESULT NEGATIVE FOR INTRAEPITHELIAL LESION OR MALIGNANCY (NIL) (none) 04/13/2018 3:34 PM CDT [facility] IMEN ADEQUACY Satisfactory for evaluation Endocervical component present 04/13/2018 3:34 PM CDT [facility] HPV REQUEST HPV and PAP 04/13/2018 3:34 PM CDT [facility] Date of LMP 03/04/18 04/13/2018 3:34 PM CDT [facility] Last Pap Date 09/06/14 04/13/2018 3:34 PM CDT [facility] Last Pap Result NIL 8 3:34 PM CDT [facility] Abnormal Pap or [place] Bx in last 5 years No 04/13/2018 3:34 PM CDT [facility] Menstrual Status Regular Periods 04/13/2018 3:34 PM CDT [facility] [place] Bx Done Today No 04/13/2018 3:34 PM CDT [facility] Additional Information None given 04/13/2018 3:34 PM CDT [facility] Automated Review Successful 04/13/2018 3:34 PM CDT [facility] Comment:Specimen processed s uccessfully by automated cardiovascular sonographer device, ThinPrep Imaging System, [employer] ANCILLARY TESTING SERVICER COIN MACHINES HPV Ordered, Please see separate report 04/13/2018 3:34 PM CDT [facility] Note The pap test is [...] lesions. Cytology is screened and interpreted at [facility] - [address], [place] [address] and [facility] - [address]; [place] [address] and [facility] - [address]; [place] [address] and [facility] [address]; [place] [address] 04/13/2018 3:34 PM CDT [facility] Other (Cervical) Non-Blood / Unknown 04/03/2018 12:40 PM CDT 04/03/2018 1:18 PM CDT Shannon Mckinney MD PATHOLOGY/CYTOLOGY [facility] [address] [place] [address], * ANTI HIV 1/2 (09/06/2014 4:05 PM CDT) HIV-1/HIV-2 ANTIBODY Non-Reacti ve Non-Reacti ve 09/06/2014 8:02 PM CDT [facility] Blood specimen (specimen) BLOOD SPECIMEN / Unknown Venipuncture / Unknown 09/06/2014 4:05 PM CDT 09/06/2014 4:05 PM CDT Narrative [facility] - 09/06/2014 8:02 PM CDT HIV-1 p24 and HIV-1/HIV-2 Ab not detected Homa Georges MD SEND OUTS [facility] [address] [place] [address], from Last 3 Months or Most Recently Relevant to Health Maintenance Care Teams Caregivers Non Medical Relationship Specialty Start Date End Date Henrik Frias DO [address] [place] [address] PCP - General Family Practice 12/30/22 Dylon Sky MD [address] [facility] [address] [place] [address] Otolaryngology Surgery - Otolaryngology 12/14/10
--- NOTE | 2023-10-25 01:37 | P.IMHP_ITS ---
Hospitalist- H&P: HPI History of Present Illness Date Seen: 10/25/23 Chief complaint: flank pain Narrative: Haven Ludwig is a 38 year old female with a PMH of depression who presented to the ED for evaluation regarding abdominal pain. Abdominal pain began days ago. She was previously seen for this pain. US completed at this time showed a gall stone therefore was referred to general surgery. Surgery evaluated and felt that her pain was NOT due to the gall stone and thought it could be rib pain. She reports that her pain severity and frequency have worsened since that time. Pain is located to RUQ and wraps around to her mid back. Pushing into her abdomen makes the pain worse. Eating does not seem to make much of a difference with her pain (eats small meals). No definite fever or chills. No consistent nausea or vomiting. Denied any recent injuries or trauma. In the ED, CT performed which showed previously mentioned gall stone however did show a thickened gall bladder wall suggesting possible cholecystitis. Laboratory evaluation was unremarkable. Review of Systems Status of ROS: Reports: 10 or more systems reviewed and unremarkable except as noted in History and below PFSH COUNT INCLUDES [facility] Medical History (Updated 10/25/23 @ 01:46 by Milton Neely DO) Multiple sclerosis ?G35 - Multiple sclerosis (ICD-10) Migraine ?G43.909 - Migraine, unspecified, not intractable, without status migrainosus (ICD-10) Depression with suicidal ideation ?F32.A - Depression, unspecified (ICD-10) ?R45.851 - Suicidal ideations (ICD-10) Chronic low back pain ?M54.50 - Low back pain, unspecified (ICD-10) ?G89.29 - Other chronic pain (ICD-10) ADD (attention deficit disorder) ?F98.8 - Other specified behavioral and emotional disorders with onset usually occurring in childhood and adolescence (ICD-10) Social History What is your current living situation?: I presently have a place to live Problems where you live: no known problems Problems where you live details: N/A In the past 12 months, utilities in danger of being shut off: no In past 12 months, lack of transportation kept you from medical appts, meetings, work, or getting things needed for daily living: no In the past 12 mos, have been you worried that your food would run out before you had money to buy more?: never true In the past 12 mos, the food you bought just didn't last and you didn't have money to buy more?: never true Highest level of school completed/degree received: some college, no degree Smoking Status: Never smoker Do you use any of these nicotine containing products: None How often do you have a drink containing alcohol: never How often do you have six or more drinks on one occasion: Never AUDIT-C Alcohol total score: 0 Non-prescribed substance use: denies use Caffeine: Yes How often does anyone, including family, friends and others, physically hurt you : never How often does anyone, including family, friends and others, insult or talk down to you: never How often does anyone, including family, friends and others, threaten you with harm: never How often does anyone, including family, friends and others, scream or curse at you: never service: No Meds Home Medications and Allergies Home Medications Medication Instructions Recorded Confirmed Type dextroamphetamine-amphetamine ER 1 cap PO DAILY 10/23/23 10/23/23 History 20 mg 24hr capsule,extend release escitalopram oxalate 20 mg tablet 20 mg PO QAM 10/23/23 10/23/23 History Allergies Allergy/AdvReac Type Severity Reaction Status Date / Time No Known Drug Allergies Allergy Verified 10/23/23 12:34 Exam Const: Vital Signs, click to edit/add: Vital Signs - 24 hr 10/24/23 22:31 10/24/23 22:33 10/24/23 22:48 Temperature 98.7 F 98.7 F Pulse Rate [Left P ulse Oximeter] Pulse Rate [Pulse Oximeter] 104 H Respiratory Rate 18 Blood Pressure [Le ft Arm] Blood Pressure [Ri ght Upper Arm] 154/101 H Pulse Oximetry 98 99 Oxygen Delivery Me thod Room Air 10/25/23 00:21 10/25/23 00:21 10/25/23 00:34 Temperature 98.4 F 98.4 F 98.4 F Pulse Rate [Left P ulse Oximeter] Pulse Rate [Pulse Oximeter] 91 91 Respiratory Rate 16 16 Blood Pressure [Le ft Arm] Blood Pressure [Ri ght Upper Arm] 145/71 H 145/71 H Pulse Oximetry 98 Oxygen Delivery Me thod Room Air 10/25/23 00:47 Temperature 99.3 F Pulse Rate [Left P ulse Oximeter] 92 Pulse Rate [Pulse Oximeter] Respiratory Rate 16 Blood Pressure [Le ft Arm] 184/119 H Blood Pressure [Ri ght Upper Arm] Pulse Oximetry 100 Oxygen Delivery Me thod Room Air Common normals: no apparent distress and oriented x3 HENMT: Common normals: normocephalic, head/scalp atraumatic, external ears normal and external nose normal Head and scalp: normocephalic and atraumatic Nose: external nose normal External ear: external ears normal Eye: Common normals: PERRL, EOMs intact bilaterally, conjunctivae normal and no scleral icterus Conjunctiva: conjunctiva(e) normal Pupil: PERRL Neck & C-Spine: Common normals: no lymphadenopathy and supple Chest: Common normals: inspection of chest normal and palpation of chest normal Resp: Common normals: normal respiratory effort, no use of accessory muscles and clear to auscultation bilaterally Auscultation: clear to auscultation bilaterally Cardio: Common normals: regular rate, regular rhythm, S1 normal heart sound, S2 normal heart sound, no gallops, no clicks and no murmurs Rate: regular rate Rhythm: regular rhythm Heart sounds: S1 normal and S2 normal GI: Common normals: Normal to inspection, nondistended, normoactive bowel sounds present and soft to palpation Palpation: soft and tender Extremity: Common normals: normal to inspection Neuro: Common normals: oriented x3 Psych: Common normals: mental status grossly normal Skin: Common normals: no rashes or lesions noted Narrative: Question allodynia to RIGHT lateral abdomen/flank however no rash noted. General skin exam: no rashes or lesions noted Hospitalist - H&P: Result Labs Labs: Short CBC 10/24/23 Range/Units 22:43 WBC 8.81 (4.50-11.00) K/uL Hgb 12.8 (12.0-16.0) gm/dL Hct 39.6 (33.0-51.0) % Plt Count 501 H (140-440) K/uL BMP 10/24/23 22:43 Sodium 139 Potassium 3.7 Chloride 105 Carbon Dioxide 28 BUN 10 Creatinine 0.8 Glucose 93 Calcium 8.9 Liver Function 10/24/23 Range/Units 22:43 Total Bilirubin 0.3 (0.1-1.5) mg/dL Direct Bilirubin 0.1 (0.0-0.5) mg/dL AST 24 (12-35) U/L ALT 20 (4-35) U/L Alkaline Phosphatase 88 (40-150) U/L Albumin 4.4 (3.3-5.0) g/dL Assessment and Plan Assessment and plan (1) Cholecystitis: Status: Acute (2) Cholelithiasis: Status: Acute Plan 1. Continue antibiotics however will switch to Rocephin and Flagyl. 2. NPO except meds 3. Surgery to see in AM, discussed with ED physician so Surgery is aware. 4. Pain regimen in place 5. IV NS while NPO 6. Differential includes zoster however no rash is present on exam, ?allodynia. Possible costochondritis but less likely
--- NOTE | 2023-10-25 01:58 | PC.NURSE ---
Shift note: Pt arrived at the unit at 0045 in a wheelchair. Pt was conscious, alert and oriented on arrival with IV Zosyn infusing at 200ml/hr. Pt complained of mild abdominal pain and tenderness more to the right upper quadrant. Bp on arrival was 184/96, rechecked after 30 minutes recorded as 134/74. Pt reviewed by Dr. Neely through [facility]. No fever, vomiting and diarrhea recorded.Treatment started as prescribed.
[2023-10-25] MEDS: 0.9 % SODIUM CHLORIDE 1000 ml 1,000 ML 75 ML IV (02:19)
[2023-10-25] MEDS: cefTRIAXone 2 GM in 0.9 % SODIUM CHLORIDE Mini-bag 100 ML IVPB (02:22)
[2023-10-25] MEDS: metroNIDAZOLE 500 MG/100 ML PIGGYBACK 100 MG IVPB (02:22)
--- NOTE | 2023-10-25 09:17 | P.GSCN_ITS ---
History of Present Illness Consult details Date Seen: 10/25/23 Consult date: 10/25/23 Narrative: 38-year-old female was admitted to the hospital and I was asked by Dr. Graham to see her in consultation. Patient was seen in my clinic yesterday with right upper quadrant pain. The pain was thought to be most likely musculoskeletal in nature and possibly also due to gallbladder disease. Abdominal CT and HIDA scan was recommended. Patient went home and had dinner. She had Bulgarian food for dinner with ice cream. She states that the pain got worse overnight and she presented to the emergency room. In the emergency room she was found to have normal WBC. Her liver function tests were normal. An abdominal CT was obtained that showed a large stone in her gallbladder with mild pericholecystic inflammation. There were no dilated loops of large or small intestine. PFSH PFS Medical History (Updated 10/25/23 @ 01:46 by Milton Neely DO) Multiple sclerosis ?G35 - Multiple sclerosis (ICD-10) Migraine ?G43.909 - Migraine, unspecified, not intractable, without status migrainosus (ICD-10) Depression with suicidal ideation ?F32.A - Depression, unspecified (ICD-10) ?R45.851 - Suicidal ideations (ICD-10) Chronic low back pain ?M54.50 - Low back pain, unspecified (ICD-10) ?G89.29 - Other chronic pain (ICD-10) ADD (attention deficit disorder) ?F98.8 - Other specified behavioral and emotional disorders with onset usually occurring in childhood and adolescence (ICD-10) Surgical History (Updated 10/25/23 @ 09:21 by Crystal Leyva MD) History of endometrial ablation ?Z98.890 - Other specified postprocedural states (ICD-10) H/O tubal ligation ?Z98.51 - Tubal ligation status (ICD-10) Social History What is your current living situation?: I presently have a place to live Problems where you live: no known problems Problems where you live details: N/A In the past 12 months, utilities in danger of being shut off: no In past 12 months, lack of transportation kept you from medical appts, meetings, work, or getting things needed for daily living: no In the past 12 mos, have been you worried that your food would run out before you had money to buy more?: never true In the past 12 mos, the food you bought just didn't last and you didn't have money to buy more?: never true Highest level of school completed/degree received: some college, no degree Smoking Status: Never smoker Do you use any of these nicotine containing products: None How often do you have a drink containing alcohol: never How often do you have six or more drinks on one occasion: Never AUDIT-C Alcohol total score: 0 Non-prescribed substance use: denies use Caffeine: Yes How often does anyone, including family, friends and others, physically hurt you : never How often does anyone, including family, friends and others, insult or talk down to you: never How often does anyone, including family, friends and others, threaten you with harm: never How often does anyone, including family, friends and others, scream or curse at you: never service: No Meds Home Medications and Allergies Home Medications Medication Instructions Recorded Confirmed Type dextroamphetamine-amphetamine ER 1 cap PO DAILY 10/23/23 10/25/23 History 20 mg 24hr capsule,extend release escitalopram oxalate 20 mg tablet 20 mg PO QAM 10/23/23 10/25/23 History Allergies Allergy/AdvReac Type Severity Reaction Status Date / Time No Known Drug Allergies Allergy Verified 10/23/23 12:34 Exam Narrative: Exam Narrative: General appearance: Alert, cooperative, and in no distress Pulmonary: Chest symmetric, lungs clear bilaterally Cardiovascular Heart: Regular rate and rhythm, S1, S2, no murmurs/rubs/gallops Gastrointestinal Abdominal: soft, not distended, tender to palpation in the right upper quadrant and right lower ribs and right lower lateral ribs similar to yesterday's exam. Skin: Normal skin color, texture, and turgor. No rashes or lesions. Psychiatric: Alert, cooperative, normal affect. Const: Vital Signs, click to edit/add: Vital Signs - 24 hr 10/24/23 22:31 10/24/23 22:33 10/24/23 22:48 Temperature 98.7 F 98.7 F Pulse Rate [Left P ulse Oximeter] Pulse Rate [Pulse Oximeter] 104 H Respiratory Rate 18 Blood Pressure [Le ft Arm] Blood Pressure [Ri ght Upper Arm] 154/101 H Pulse Oximetry 98 99 Oxygen Delivery Me thod Room Air 10/25/23 00:21 10/25/23 00:21 10/25/23 00:34 Temperature 98.4 F 98.4 F 98.4 F Pulse Rate [Left P ulse Oximeter] Pulse Rate [Pulse Oximeter] 91 91 Respiratory Rate 16 16 Blood Pressure [Le ft Arm] Blood Pressure [Ri ght Upper Arm] 145/71 H 145/71 H Pulse Oximetry 98 Oxygen Delivery Me thod Room Air 10/25/23 00:47 10/25/23 03:45 10/25/23 07:00 Temperature 99.3 F 98.3 F Pulse Rate [Left P ulse Oximeter] 92 80 Pulse Rate [Pulse Oximeter] Respiratory Rate 16 16 Blood Pressure [Le ft Arm] 184/119 H 127/71 Blood Pressure [Ri ght Upper Arm] Pulse Oximetry 100 94 99 Oxygen Delivery Oh thod Room Air Room Air 10/25/23 07:00 10/25/23 07:00 Temperature 97.9 F Pulse Rate [Left P ulse Oximeter] 72 72 Pulse Rate [Pulse Oximeter] Respiratory Rate 16 16 Blood Pressure [Le ft Arm] 141/95 H Blood Pressure [Ri ght Upper Arm] Pulse Oximetry 99 Oxygen Delivery Me thod Room Air Results Labs Labs: Abnormal lab results 10/24/23 Range/Units 22:43 Plt Count 501 H (140-440) K/uL Anion Gap 6 L (7-15) mEq/L C-Reactive Protein 1.3 H (0.5-1.0) mg/dL Diabetes panel 10/24/23 Range/Units 22:43 Sodium 139 (135-149) mmol/L Potassium 3.7 (3.6-5.1) mmol/L Chloride 105 (96-114) mmol/L Carbon Dioxide 28 (20-32) mmol/L BUN 10 (5-24) mg/dL Creatinine 0.8 (0.5-1.5) mg/dL Glucose 93 (60-115) mg/dL Calcium 8.9 (8.4-10.6) mg/dL AST 24 (12-35) U/L ALT 20 (4-35) U/L Alkaline Phosphatase 88 (40-150) U/L Total Protein 8.0 (6.0-8.3) g/dL Albumin 4.4 (3.3-5.0) g/dL Calcium panel 10/24/23 Range/Units 22:43 Calcium 8.9 (8.4-10.6) mg/dL Albumin 4.4 (3.3-5.0) g/dL Pituitary panel 10/24/23 Range/Units 22:43 Sodium 139 (135-149) mmol/L Potassium 3.7 (3.6-5.1) mmol/L Chloride 105 (96-114) mmol/L Carbon Dioxide 28 (20-32) mmol/L BUN 10 (5-24) mg/dL Creatinine 0.8 (0.5-1.5) mg/dL Glucose 93 (60-115) mg/dL Calcium 8.9 (8.4-10.6) mg/dL Adrenal panel 10/24/23 Range/Units 22:43 Sodium 139 (135-149) mmol/L Potassium 3.7 (3.6-5.1) mmol/L Chloride 105 (96-114) mmol/L Carbon Dioxide 28 (20-32) mmol/L BUN 10 (5-24) mg/dL Creatinine 0.8 (0.5-1.5) mg/dL Glucose 93 (60-115) mg/dL Calcium 8.9 (8.4-10.6) mg/dL Total Bilirubin 0.3 (0.1-1.5) mg/dL AST 24 (12-35) U/L ALT 20 (4-35) U/L Alkaline Phosphatase 88 (40-150) U/L Total Protein 8.0 (6.0-8.3) g/dL Albumin 4.4 (3.3-5.0) g/dL All other labs normal. Progress Note:A&P Assessment and plan (1) Cholelithiasis: Status: Acute Plan 38-year-old female admitted to the hospital with right upper quadrant pain. I discussed with the patient her CT findings. The radiology read mentions mild inflammation surrounding the gallbladder. There is a calcified large stone in the gallbladder. This can certainly cause her right upper quadrant pain. However, I discussed with the patient that her pain is possibly not only due to gallbladder disease and has musculoskeletal component. We mutually discussed proceeding with laparoscopic cholecystectomy, and patient agreed. The procedure was discussed in detail. The risks associated procedure including infection, bleeding, injury to intra-abdominal organs, injury to the common bile duct, and continued pain were all discussed with the patient, and she agreed to proceed.
[2023-10-25] MEDS: HYDROmorphone 0.5 mg/0.5 ml inj IVP (10:46)
--- NOTE | 2023-10-25 13:11 | P.GSOP_ITS ---
Operative Note Date of procedure: 10/25/23 Pre-op diagnosis: 1. Possible Acute cholecystitis and cholelithiasis. Post-op diagnosis: 1. Acute cholecystitis and cholelithiasis. Type of Procedure: 1. Laparoscopic cholecystectomy. Indications: 38-year-old female presented to clinic for evaluation of right-sided abdominal pain. Patient stated that her pain started several days prior to her presentation to the emergency room. The pain was on the right side in the right upper quadrant and wrapping around the right flank and to the back. The pain was worse with moving and palpating the right side. The pain did not significantly change with eating. The pain was constant all weekend and patient decided to present to the emergency room because she was not able to get up from the floor. In the emergency room she was found to have normal WBC normal liver function tests. Her CRP was minimally elevated at 1.2. An abdominal ultrasound showed contracted gallbladder with gallbladder wall of 4 mm. There was a large stone in the gallbladder. Her common bile duct was normal in size. On clinical exam patient had tenderness to palpation in the right upper quadrant but mostly right lower ribs. We discussed in clinic that her pain could be musculoskeletal in nature in combination with gallbladder disease. Plans were made for abdomi nal CT and HIDA scan. However, in the evening after patient had dinner her pain became significantly worse and she re-presented to the emergency room. In the emergency room she again was found to have normal WBC and normal liver function tests. An abdominal CT was obtained this time that showed minimal inflammation around the gallbladder. There was a large stone again noted in the gallbladder. No dilated loops of small large intestine were noted. On clinical exam again patient had tenderness to palpation in the right upper quadrant with most tenderness being in the right lower ribs. Given the finding of mild inflammation surrounding the gallbladder, discussion was held with the patient regarding laparoscopic cholecystectomy. I discussed with the patient that her pain may not completely resolve after remove the gallbladder since there could be a musculoskeletal component of her right-sided pain. Patient wanted to proceed with laparoscopic cholecystectomy. The procedure was discussed in detail. The risks associated procedure including infection, bleeding, injury to the intra-abdominal organs, and injury to the common bile duct were all discussed with the patient, and she agreed to proceed. Procedure Description: After discussing the risks and benefits of the procedure, the patient signed informed consent.? The operative site was marked and the patient was brought to the operating room and placed on the operating table in supine position.? Care was taken to pad the patient's pressure points.?? The patient was then intubated by anesthesia.?? The operative site was then prepped and draped in the usual sterile fashion.? A time-out was then performed. A 5-mm laparoscopy port was placed in the left upper quadrant guided by a 5-mm laparoscope placed into a translucent trochar.~ Passage through the layers of the abdominal wall was visualized with the laparoscope.~ A pneumoperitoneum was established. A 0-degree 5-mm laparoscope was advanced into the abdomen. The abdomen was briefly surveyed, and no adhesions were noted. A 10-mm port were placed infraumbilically and two more 5 mm ports were placed on the right under direct visualization by laparoscope. The camera was then changed to 10 mm 30- degree scope and placed into the abdomen through the 10 mm port. The left upper quadrant port entrance was examined and no injury to intra-abdominal organs was identified. The gallbladder was identified, the fundus grasped and retracted cephalad. The gallbladder appeared to be distended but I was able to grasp it. The infundibulum was grasped and retracted laterally, exposing the peritoneum overlying the triangle of Calot. Fibrotic adhesions were noted to the gallbladder infundibulum and those were taken down with hook cautery. The peritoneum overlying the triangle of Calot then divided and exposed in a blunt fashion and with hook cautery. Common bile duct was not identified but care was taken not to injure it. The cystic duct was clearly identified and bluntly dissected circumferentially. Cystic artery was identified and tissues around it were dissected off. The cystic artery and the cystic duct were clearly going into the gallbladder. The cystic duct was then doubly ligated with surgical clips on the patient's side and singly clipped on the gallbladder side and divided. The cystic artery was then similarly ligated with clips and divided as well. The gallbladder was dissected from the liver bed in retrograde fashion using hookcautery. A small artery was noted to run in the mid gallbladder fossa. During gallbladder mobilization from the mid gallbladder fossa this started bleeding. The bleeding was controlled with 5 mm clips. The gallbladder was then removed from the liver and was placed into an Endo-Catch bag, and removed through the infraumbilical incision. The skin and fascial incision infraumbilically had to be enlarged to accommodate removal of the gallbladder. Surgical site was examined for bleeding. No bleeding was seen in the surgical field. The fascia of the infraumbilical incision was then closed with a running 0-0 vicryl stitch. This closure was then examined intra-abdominally, and no intra- abdominal structures were incarcerated in the closure. Pneumoperitoneum was completely reduced after viewing removal of the trocars under direct vision. The skin was then closed with 4-0 monocryl and steristrips were applied. Instrument, sponge, and needle counts were correct at closure and at the conclusion of the case. The patient was transferred to PACU in stable condition. Findings: Mild inflammation noted in the gallbladder wall. Anesthesia: GETA Surgeon: Crystal Leyva MD Estimated blood loss (mL): 5 Specimen: Gallbladder Condition: stable Disposition: PACU
[2023-10-25] MEDS: CEFAZOLIN 2 GM INJ IVP (13:18)
[2023-10-25] MEDS: LACTATED RINGERS 1000 ML 1,000 ML 100 ML IV (13:24)
[2023-10-25] MEDS: BUPIVACAINE 0.25% 30 ML INJECTION (13:30)
--- NOTE | 2023-10-25 14:18 | W.ANESCHARGE ---
Anesthesia Charges Start Date/Time Anesthesia Start Date: 10/25/23 Anesthesia Start Time: 13:03 Stop Date/Time Anesthesia Stop Date: 10/25/23 Anesthesia Stop Time: 14:46 Summary Emergency: MDA
--- NOTE | 2023-10-25 14:48 | P.ANES_ITS ---
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
[2023-10-25] MEDS: ONDANSETRON 2 MG/ML inj 4 MG IVP (14:55)
[2023-10-25] MEDS: METOCLOPRAMIDE HCL 5 MG/ML INJ 10 MG IVP (15:20)
--- NOTE | 2023-10-25 15:47 | PM.GSPRC ---
Operative Note Date of procedure: 10/25/23 Pre-op diagnosis: 1. Possible acute cholecystitis and cholelithiasis. Post-op diagnosis: 1. Acute cholecystitis and cholelithiasis. Type of Procedure: 1. Laparoscopic cholecystectomy. Procedure Description: After discussing the risks and benefits of the procedure, the patient signed informed consent.? The operative site was marked and the patient was brought to the operating room and placed on the operating table in supine position.? Care was taken to pad the patient's pressure points.?? The patient was then [intubated/given sedation] by anesthesia.?? The operative site was then prepped and draped in the usual sterile fashion.? A time-out was then performed. Sterile dressings were then applied. ? The patient was then woken and transported to the recovery area in stable condition. ? The patient tolerated the procedure well. Surgeon: Crystal Leyva MD
--- OUTSIDE RECORDS SUMMARY | 2023-11-01 10:02 | XMS_ITS | Clinical Summary ---
Author Name Unknown Organization [facility] Address [place], [place] [address] Care Team Providers Care Acetylene Operator Name Role Phone Dylon Sky MD Unavailable [phone] Henrik Frias DO Primary Care Provider [phone] Allergies Active Allergy Reactions Criticality Noted Date Comments Comstock Rash 02/27/2014 Formaldehyde Analogues Headache 06/03/2014 Topical [...] Encounters Date Type Department Care Team Description 10/31/2023 Telephone [facility] [address] [place] [address] Crystal Leyva MD Questions 10/31/2023 Orders Only [facility] [address] [place] [address] Crystal Leyva MD <No scans attached> 10/28/2023 Telephone [facility] [address] [place] [address] Crystal Leyva MD Form (LA) 10/28/2023 Telephone [facility] [address] [place] [address] Crystal Leyva MD Form 10/25/2023 8:00 AM CDT Office Visit [facility] at [facility] [address] [place] [address] Crystal Leyva MD Surgery Scheduled 10/25/2023 Orders Only [facility] Scanner 1 scan: (1-Ord) [facility], LAPAROSCOPIC CHOLECYSTECTOMY, 10/25/2023 10/25/2023 Lab Requisition [facility] [phone] Crystal Leyva MD 10/24/2023 12:30 PM CDT Office Visit [facility] [address] [place] [address] Crystal Leyva MD Consult (gallbladder) 10/24/2023 Orders Only [facility] Scanner 1 scan: (1-Ord) [facility], CT ABDOMEN PELVIS W CON, 10/24/2023 10/24/2023 Travel 10/24/2023 Telephone [facility] [address] [place] [address] Crystal Leyva MD Appointment (Dr. 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 Plan of Treatment Health Maintenance Due Date Last Done Comments Hepatitis C screening for age 18-79 2003 COVID-19 vaccine series (2022- season) 2023 11/06/2020, 10/09/2020 Pap test for [...] Procedure Name Priority Date/Time Associated Diagnosis Comments LAB TRACKING EVENT Routine 10/25/2023 2: 15 PM CDT PATH TISSUE EXAM Routine 10/25/2023 2:15 PM CDT SCAN-OPERATIVE/PROCEDU RE REPORT 10/25/2023 12:00 AM CDT SCAN-CT INTERPRETATION 12:00 AM CDT SCAN-ULTRASOUND REPORT 12:00 AM CDT CUSTOMER SOLUTIONS COORDINATOR THIN PREP PAP SCREEN IMAGED Routine 04/03/2018 12:40 PM CDT Screening for malignant neoplasm of cervix ANTI HIV 1/2 Routine 09/06/2014 4:05 PM CDT Screening for STD (sexually transmitted disease) from Last 3 Months or Most Recently Relevant to Health Maintenance Results * LAB TRACKING EVENT (10/25/2023 2:15 PM CDT) Other (Other) Client Collect / Unknown 10/25/2023 2:15 PM CDT 10/25/2023 9:49 PM CDT Crystal Leyva MD LAB BILL ONLY [facility] [address] [place] [address], * PATH TISSUE EXAM (10/25/2023 2:15 PM CDT) Case Report Pathology Report ?Case: [id number] ? Authorizing Provider: ??Crystal Leyva MD ?Collected: ? 10/25/2023 1415 ? Ordering Location: ? [facility] ?Received: ?10/26/2023 08 ? Pathologist: ? Cheo Pyle ? IV, MD ? Specimen: ?Gallbladder ? 10/28/2023 10:28 AM [facility] Final Diagnosis A) GALLBLADDER, CHOLECYSTECTOMY: 1. Chronic cholecystitis 2. Cholelithiasis 3. Negative for dysplasia and malignancy 10/28/2023 10:28 AM [facility] Clinical Information Ms. Ludwig is a 38 y.o. who undergoes cholecystectomy. 10/28/2023 10:28 AM [facility] Gross Description A) Received in formalin, labeled with the patient's name and gallbladder, is a 12 x 4.6 x 4 cm intact gallbladder. ??There is a single green gallstone identified. ??There are 5 green ovoid mucosal polyps in the gallbladder body ranging in size from 0.2-0.4 cm. ??All of the polyps are located 3.5 cm or greater from the cystic duct margin. The average wall thickness is 0.1 cm. There is no abnormal wall thickening identified. No cystic duct lymph node is identified. 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 ??Cystic duct margin and gallbladder 2. ??Polyps, entirely submitted RAL 10/26/2023 10/28/2023 10:28 AM [facility] Microscopic Description The final diagnosis is based on microscopic examination of appropriate sections of all specimens. 10/28/2023 10:28 AM [facility] Additional Information Interpreted at [facility] - [address], [place] [address] 10/28/2023 10:28 AM [facility] Other SPECIMEN FROM GALLBLADDER / Unknown 10/25/2023 2:15 PM CDT 10/26/2023 8:05 AM CDT Crystal Leyva MD PATHOLOGY/CYTOLOGY [facility] [address] [place] [address], [place] * SCAN-OPERATIVE/PROCEDURE REPORT (10/25/2023 12:00 AM CDT) Scanner OTHER * SCAN-CT INTERPRETATION (10/24/2023 12:00 AM CDT) Anatomical Region Laterality Modality Other Scanner OTHER * SCAN-ULTRASOUND REPORT (10/23/2023 12:00 AM CDT) Anatomical Region Laterality Modality Other Scanner OTHER * CUSTOMER SOLUTIONS COORDINATOR THIN PREP PAP SCREEN IMAGED [[id number]] (04/03/2018 12:40 PM CDT) Case Report Gynecologic Cytology Report ? Case: [id number] ? Authorizing Provider: ??Shannon Mckinney MD ? Collected: ? 04/03/2018 1240 ? Ordering Location: ? [facility] ?? Received: ?04/03/2018 1318 ? Clinic ? First Screen: ?Reyna Diaz ? Specimen: ?CUSTOMER SOLUTIONS COORDINATOR ThinPrep Vial Screening, Cervical ? 04/13/2018 3:34 PM CDT [facility] INTERPRETATION/ RESULT NEGATIVE FOR INTRAEPITHELIAL LESION OR MALIGNANCY (NIL) (none) 04/13/2018 3:34 PM CDT [facility] IMEN ADEQUACY Satisfactory for evaluation Endocervical component present 04/13/2018 3:34 PM CDT [facility] HPV REQUEST HPV and PAP 04/13/2018 3:34 PM CDT [facility] Date of LMP 03/04/18 04/13/2018 3:34 PM CDT [facility] Last Pap Date 09/06/14 04/13/2018 3:34 PM CDT [facility] Last Pap Result NIL 8 3:34 PM CDT [facility] Abnormal Pap or Mellott Bx in last 5 years No 04/13/2018 3:34 PM CDT [facility] Menstrual Status Regular Periods 04/13/2018 3:34 PM CDT [facility] Mellott Bx Done Today No 04/13/2018 3:34 PM CDT [facility] Additional Information None given 04/13/2018 3:34 PM CDT [facility] Automated Review Successful 04/13/2018 3:34 PM CDT [facility] Comment:Specimen processed s uccessfully by automated plater hot dip device, ThinPrep Imaging System, [employer] ANCILLARY TESTING CUSTOMER SOLUTIONS COORDINATOR HPV Ordered, Please see separate report 04/13/2018 3:34 PM CDT [facility] Note The pap test is [...] lesions. Cytology is screened and interpreted at [facility] - [address], [place] [address] and [facility] - [address]; [place] [address] and [facility] - [address]; [place] [address] and [facility] [address]; [place] [address] 04/13/2018 3:34 PM CDT [facility] Other (Cervical) Non-Blood / Unknown 04/03/2018 12:40 PM CDT 04/03/2018 1:18 PM CDT Shannon Mckinney MD PATHOLOGY/CYTOLOGY [facility] [address] [place] [address], [place] * ANTI HIV 1/2 (09/06/2014 4:05 PM CDT) HIV-1/HIV-2 ANTIBODY Non-Reacti ve Non-Reacti ve 09/06/2014 8:02 PM CDT [facility] Blood specimen (specimen) BLOOD SPECIMEN / Unknown Venipuncture / Unknown 09/06/2014 4:05 PM CDT 09/06/2014 4:05 PM CDT Narrative [facility] - 09/06/2014 8:02 PM CDT HIV-1 p24 and HIV-1/HIV-2 Ab not detected Homa Georges MD SEND OUTS [facility] [address] [place] [address], from Last 3 Months or Most Recently Relevant to Health Maintenance Care Teams Acetylene Operator Relationship Specialty Start Date End Date Henrik Frias DO [address] [place] [address] PCP - General Family Practice 12/30/22 Dylon Sky MD [address] [facility] [address] [place] [address] Otolaryngology Surgery - Otolaryngology 12/14/10
== END 2023-10-25 16:08 | disposition home or self-care (01) ==
LOC: ED 10-25 00:16 → MEDSURG 10-25 07:41 → SS 11-01 10:00 → MEDSURG 11-01 10:02
PROVIDERS: Emergency Provider Family Medicine; PCP Family Medicine; Visit Provider Surgery
PROC: 0FT44ZZ Resection of Gallbladder, Percutaneous Endoscopic Approach (ICD-10-PCS; CPT 47562; principal; 2023-10-25 14:00)
DX: K80.00 Calculus of gallbladder with acute cholecystitis without obstruction (principal); R10.11 Right upper quadrant pain; G35 Multiple sclerosis
CPT/HCPCS: 47562; 00790; 36415; 74177; 80053; 81025; 82248; 83605; 83690; 84703; 85025; 86140; 88304; 94761; 99140; 99284; 99285; J0330; J0665; J0690; J0696; J1100; J1170; J1836; J1885; J2250; J2405; J2543; J2704; J2710; J2765; J3010; J7030; J7120; Q9967